=== PATIENT | female | born 2005 | race Hispanic/Latino ===

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

== ENCOUNTER 2023-10-22 08:14 | Emergency (ER) | payer OTHER ==
[~2023-10-22] VITALS: Ht 165.1 cm; Wt 97.5 kg
[2023-10-22 09:09] LABS: HEMATOCRIT 38.5 % (36-48); MEAN CORPUSCULAR HEMOGLOBIN 25.2 pg (27.0-33.0); MEAN CORPUSCULAR HGB CONC 32.2 g/dL (32.0-36.0); MEAN CORPUSCULAR VOLUME 78.1 fL (80-100); RED BLOOD CELL COUNT(AUTO) 4.93 MIL/uL (4.00-5.50); WHITE BLOOD COUNT (AUTO) 11.7 K/uL (4.8-10.8)
[2023-10-22 09:16] LABS: APPEARANCE,URINE CLEAR (CLEAR); BILIRUBIN,URINE NEGATIVE (NEGATIVE); COLOR,URINE LIGHT-YELLOW (YELLOW); GLUCOSE, URINE (UA) NEGATIVE (NEGATIVE); KETONES,URINE NEGATIVE (NEGATIVE); LEUKOCYTE ESTERASE ,URINE 75 Leu/uL (NEGATIVE); NITRATE,URINE NEGATIVE (NEGATIVE); OCCULT BLOOD,URINE NEGATIVE (NEGATIVE); PROTEIN,URINE NEGATIVE (NEGATIVE); UROBILINOGEN,URINE 0.2 mg/dL (0.2-1.0)
[2023-10-22 09:17] LABS: ADD UA MICROSCOPIC YES
[2023-10-22 09:19] LABS: HCG,QUALITATIVE URINE NEGATIVE (NEGATIVE)
[2023-10-22 09:20] LABS: CREATININE 0.8 mg/dL (0.5-1.0); POTASSIUM 4.4 mmol/L (3.5-5.1)
[2023-10-22 09:24] LABS: BACTERIA,URINE RARE /HPF (None Seen); MUCUS,URINE RARE LPF (None Seen); RBC,URINE 0-1 /HPF (0-1); SQUAMOUS EPITHELIAL CELL,UR MOD /HPF (0-2)
[2023-10-22] MEDS ORDERED: AZEL205.9 NS (09:33)
[2023-10-22] MEDS ORDERED: FLUT16H NASAL (09:33)
[2023-10-22] MEDS: DEXAMETHASONE SOD PHOSPHATE 4 MG/ML 1ML VIAL IM ONE (09:35)
[2023-10-22 09:38] VITALS: BP 139/84; PULSE 99; RESP 16; O2SAT 100
== END 2023-10-22 09:44 | disposition home or self-care (01) ==
LOC: EDH 08:14
DX: J30.9 Allergic rhinitis, unspecified (principal); R06.7 Sneezing; R09.82 Postnasal drip; R09.81 Nasal congestion
CPT/HCPCS: 99283; 80048; 85027; 87088; 81001; 81025; 36415; 96372; J1100